=== PATIENT | female | born 1940 | race Caucasian/White ===

== ENCOUNTER 2018-04-27 14:49 | Inpatient (IN) | payer OTHER ==
[~2018-04-27 14:49] MED LIST: ACETAMINOPHEN-1 EAC1 PO; AMLODIPINE BESYL5 M1 PO; AMOXICILLIN500 M1 PO; ARICEPT 5 MG TAB5 MG PO; ASPIR 8181 MG PO; ATIVAN0.5 MG PO; AZITHROMYCIN 2250 MG PO; CARDIZEM CD120 MG PO; CEFUROXIME250 MG PO; CELEXA20 MG PO; COZAAR 50 MG TA50 M2 PO; CYMBALTA60 MG PO; DUONEB 2.5-0.5 M3 ML INH; EXELON1 EACH TRANSDERM; FIORICET 50-301 EACH PO; FLEXERIL PO; GERD MED; HYDRALAZINE 10M10 MG PO; HYDRALAZINE 2525 MG PO; KEPPRA 500 MG500 M1 PO; LASIX 40 MG TAB40 M2 PO; LIORESAL 10 MG10 MG PO; LIPITOR 10 MG10 M1 PO; LISINOPRIL10 MG PO; LOPERAMIDE 2 MG2 M1 PO; LOPRESSOR 12.12.5 MG PO; LOPRESSOR25 PO; METOLAZONE 2.52.5 MG PO; MOBIC15 MG PO; MUCINEX TA600 MG/TA2 PO; NAMENDA 5 MG TAB5 M1 PO; NORCO 5-325 TA1 EACH PO; OLANZAPINE ODT5 MG PO; ONDANSETRON HCL4 M2 PO; PEPCID20 MG PO; POTASSIUM20 PO; PREDNISONE 20 M20 M1 PO; PRINIVIL10 MG PO; PROTONIX40 M1 PO; RIVASTIGMINE1.5 MG PO; TESSALON PERLE100 MG PO; TRAMADOL 50 MG50 MG PO; TRAZODONE HCL50 MG PO; TYLENOL EXTRA500 MG PO; VENTOLIN HFA 1818 GM INH; ZANAFLEX4 MG PO; ZANTAC 150MG T150 MG PO; ZOLOFT 50 MG TA50 M1 PO
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
--- NOTE | 2018-04-28 20:01 | NUR ---
PT SCREAMING, HAVING VISUAL HALLUCINATION CLAIMING SHE IS IN THE [facility], ASSISTED TO THE DINING AREA AND STAYED THERE FOR BARELY 5 MINUTES THEN BECAME RESTLESS YELLING "TAKE ME BACK TO MY ROOM, A DIFFERENT ROOM, MY ROOM IS IN THE [facility]", EN ROUTE TO THE ROOM SHE DECIDED TO SIT ON THE FLOOR AND LIE DOWN BANGING ON THE DOOR, CALLED TO DR BARRERA, ORDER FOR VIOLETA, 10 M IM, PT IN BED AT THIS TIME.
[2018-04-28 20:28] VITALS: BP 134/69
[2018-04-28 22:21] LABS: URINE BILIRUBIN NEGATIVE (Negative); URINE BLOOD NEGATIVE (Negative); URINE CLARITY CLEAR; URINE COLOR YELLOW; URINE GLUCOSE-RANDOM* NEGATIVE (Negative); URINE KETONES TRACE (Negative); URINE LEUKOCYTES-REFLEX NEGATIVE (Negative); URINE NITRITE-REFLEX NEGATIVE (Negative); URINE PROTEIN (DIPSTICK) NEGATIVE (Negative); URINE SPECIFIC GRAVITY 1.015 (1.005-1.035); URINE UROBILINOGEN 0.2 E.U./dl (0.2-1.0)
--- NOTE | 2018-04-28 22:54 | NUR ---
CALMED DOWN AND RESTED AFTER THE JASMINE WAS GIVEN, ABLE TO COLLECT URINE SPECIMEN, SENT TO LAB, TOOK MEDS WITH NO DIFFICULTY, BLOOD SUGAR WAS CHECKED DUE TO SKIN WAS CLAMMY, 111, TOLERATING ORAL HYDRATION, UP WITH ASSIST WITH GAIT BELT TO THE BATHROOM, +2 EDEMA TO LEFT LEG, +1 TO RIGHT LEG, ALERT/ORIENTED TO NAME, UNABLE TO TELL WHERE SHE IS, MONITORED.
--- NOTE | 2018-04-29 04:40 | NUR ---
EPISODE AGAIN OF VERBAL AGGRESSION AND NAME CALLING NOTED FROM THE PATIENT THIS MORNING, PT CLAIMED STAFF ARE ROUGH. THIS NURSE TOOK OVER CARE AND SHE IS COOPERATIVE. ABLE TO TALK TO GO BACK TO SLEEP AFTER OFFERING DRINK OF WATER, SHE IS CONTINENT OF B/B, REQUESTED BRIEF THIS MORNING, GIVEN ONE AT THIS TIME. NO BM NOTED, STILL NEEDING SPECIMEN FOR C-DIFF, LIGHTS ON PER REQUEST, MONITORED.
[2018-04-29 07:28] VITALS: BP 151/74
[2018-04-29 09:47] LABS: ABSOLUTE NEUTROPHILS 3.8 thou/uL (1.4-8.2); BASOPHILS 1.7 % (0.0-2.0); EOSINOPHILS 1.3 % (0.0-3.0); HEMATOCRIT 31.7 % (37.0-47.0); HEMOGLOBIN 10.9 gm/dL (12.0-15.0); LYMPHOCYTES 18.2 % (24.0-44.0); MCH 28.7 pg (26.0-34.0); MCHC 34.5 g/dL (28.0-37.0); MCV 83.2 fL (80.0-100.0); MONOCYTES 6.4 % (1.0-8.0); PLATELET COUNT 189 thou/uL (150-400); POLYS 72.4 % (36.0-66.0); RBC 3.81 mil/uL (4.20-5.00); RDW 15.4 % (10.5-14.5); WBC 5.2 thou/uL (4.0-11.0)
[2018-04-29 10:00] LABS: CALCIUM 8.7 mg/dL (8.5-10.1); CREATININE 0.9 mg/dL (0.6-1.0); MAGNESIUM 1.6 mg/dL (1.8-2.4); POTASSIUM 3.8 mmol/L (3.5-5.1); TOTAL BILIRUBIN 0.6 mg/dL (<0.1-1.0); TOTAL PROTEIN 5.9 g/dL (6.4-8.2)
--- NOTE | 2018-04-29 12:17 | NUR ---
PATIENT HAS BEEN UNWILLING TO GET UP AND HAVE BREAKFAST OR LUNCH - NUMEROUS ATTEMPTS HAVE BEEN MADE TO ENCOURAGE PATIENT TO TAKE MEDICATIONS WELL. SHE IS RESPONSIVE TELLING STAFF TO GO AWAY SEVERAL TIMES THIS MORNING BUT NOT WILLING TO RESPOND TO STAFF.
--- NOTE | 2018-04-29 15:46 | NUR ---
PT. HAS BEEN VERY QUIET TODAY. SULLEN, SITTING QUIETLY. UPSET STILL IF HIS NEEDS ARE NOT GRATIFIED IMMEDIATELY. PT. CONTINUES TO NOT BE ABLE TO ATTEND GROUPS AND IS OUT ONLY FOR MEALS. HE HAS A DIAGNOSIS OF DEMITIA EVIDENCED BY UNABLE TO ANSWER QUESTIONS, DISCONNECTED SENTENSES WITH SIMPLE RESPONSES LIKE, COME ON NOW. HE USES A WALKER TO AMBULATE, WALKING ON HIS TOES AND WITH KNEES BENT WITH FEET TURNED SLIGHTLY INWARD HE AMBULATES. HE HAS POOR IMPULSE CONTROL EVIDENCED BY INABLILITY TO DELAY GRATIFICATION. HIS SPEECH CONTINUES TO BE GARBLES AND DIFFICULT TO UNDERSTAND.
--- NOTE | 2018-04-29 17:44 | NUR ---
SW had a family meeting with the pt daughter Marylou Shipleyoner, Bernardo Lugo, and Lanny Amador concerning hospice. Pt was admitted to hospice through [facility]. Pt will be transported to [facility] by [facility] ambulance. [facility] will follow-up pt upon discharge.
[2018-04-29 19:53] VITALS: BP 146/72
[2018-04-30 04:39] VITALS: BP 146/72
--- NOTE | 2018-04-30 05:42 | NUR ---
PATIENTS CARES WERE ASSUMED AT SHIFT CHANGE. pATIENT WAS ASSESSED AND MEDS WERE PASSED ORDERED OR NEEDED. THIS PATIENT WAS UP OUT OF BED X2 FOR THE BSC. PATIENT HAD APPROPRIATE ROUNDING BY ALL STAFF. SHE APPERED TO BE SLEEPING EACH TIME. THE BED ALARM IS ON. THE BED IS IN A LOW AND LOCKED POSITION.
[2018-04-30 08:00] VITALS: BP 182/90
[2018-04-30 08:02] VITALS: BP 182/90
--- NOTE | 2018-04-30 08:47 | H ---
[facility] [place] [address] HISTORY AND PHYSICAL Name: JUWAN SHEPHERD Room #: 519B-B ADM IN M.R.#: [id number] Admission: 04/28/18 Attend Phys: Rom Cr DO Discharge: Date of : 38 Report #: [id number] THIS REPORT FOR: //name// CC: Rom Motley DATE OF SERVICE: 04/29/2018 Of note, the patient had been at [facility] in [place], [place] from 04/24/2018 to 04/28/2018, there was a delay in her being transferred due to the weather. 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 HISTORY OF PRESENT ILLNESS: This is a 78-year-old obese female with a history of dementia. She presented from [facility] to the [facility] Emergency Room on 04/24/2018. She was brought by EMS with complaints of altered mental status. residential reported that the patient was combative and refusing treatment and wanted a psychiatric evaluation. She was refusing any type of medical treatment. She did not answer questions during the initial ER exam and was repeating "help they are going to kill me." The duration of this was in a period of hours prior to Emergency Room physician. From collateral provided by Dr. Harris, the patient continued to be mute for the first couple of days, would refuse things such as a urine sample, it was eventually obtained, which was negative for infection. Most other modalities checked were also negative. REVIEW OF SYSTEMS: On the patient when she got to the psychiatric unit was difficult to be done due to limited attention, but she denied physical complaints such as nausea, vomiting, fever or diarrhea. Otherwise, a 10-point review of systems is not possible due to her cooperation. PAST MEDICAL HISTORY: Includes obesity, hypertension, gastroesophageal reflux disease, cholecystitis status post cholecystectomy, polio as a child. PAST SURGICAL HISTORY: Appendectomy, hysterectomy, cholecystectomy, tonsillectomy. PSYCHIATRIC HISTORY: She is noted to have early onset dementia, details of which I do not have and I am also unclear if it was truly under the age of 69, which would be the threshold considered in the field. HOME MEDICATIONS: Noted to be atorvastatin 10 mg at bedtime and ranitidine 150 mg b.i.d. Additionally, reported medications in [facility] are donepezil [address] [address] HISTORY AND PHYSICAL Name: JUWAN SHEPHERD Room #: 519B-B ADM IN ..#: [id number] Admission: 04/28/18 Attend Phys: Rom Cr DO Discharge: Date of : 38 Report #: [id number] daily, lisinopril 10 mg daily, memantine 5 mg daily, baclofen 10 mg t.i.d., olanzapine unspecified dose, Keppra 500 mg b.i.d., Furosemide 40 mg daily, potassium chloride 20 mEq daily, citalopram 20 mg daily, loperamide 2 mg as directed, hydralazine 25 mg 4 times a day, diltiazem hydrochloride 120 mg daily, metoprolol tartrate 25 mg daily and metolazone 2.5 mg daily. ALLERGIES: PENICILLIN. FAMILY HISTORY: Not obtained in the ER. LABORATORY DATA: Initial laboratories on 04/24/2018 showed a BUN of 29, creatinine 1.9, ALT 14. RBC 4.14, hemoglobin 11.8, hematocrit 36.4. She was admitted to [facility], was given a liter of normal saline, Ativan 1 mg x 2 and Geodon 10 mg IM x 2. I am unclear other than for sedation while she was given Ativan 1 mg x 2 in the Emergency Room; however, that is a potential contributor to her delirium. Other laboratories done after the 2nd, BMP on the 7th was within normal limits including a GFR of 60, glucose 93, sodium 143, potassium 3.8, chloride 103, bicarbonate 32, anion gap 8, calcium 8.7, magnesium slightly low at 1.6, AST 14, ALT 12, which were low; total protein of 5.9 and albumin at 3.0. Urinalysis done on the showed trace ketones, otherwise within normal limits. There was no recent neuro imaging; however, neuro imaging done on 08/11/2016 was concerning for a lesion in the frontal lobe 3.7 x 3.9 cm in size. At the time, there was concern it could be a metastatic cancer. Apparently, the patient was referred to the [facility] for Neurology, Neurosurgery workup, the results of that are not known. Obviously, at this point since it has been close to 2 years since this head CT, I would not expect it to be a malignant lesion because the patient still living; however, it does remain an unresolved issue. MENTAL STATUS EXAMINATION: Well-developed, well-nourished, obese female in hospital gown in bed. Attention graded limited, concentration graded limited. Speech normal rate, but erratic. Thought process linear, but very limited. Thought content, general poverty. Psychomotor agitation some, no psychomotor retardation. Denied auditory, visual, or tactile hallucination. Denied suicidal intent or plan. Denied hopelessness and helplessness. Denied homicidal intent or plan. The patient was not oriented to time, situation, or place. CURRENT VITAL SIGNS: Temperature 36.8, pulse rate 65, BP 120/63 this morning, repeat 151/74, pulse ox 95% on room air. MICROBIOLOGY DATA: There was no blood culture done her recent medical admission. ASSESSMENT: A 78-year-old obese female, a [facility] resident, concern for delirium on top of major neurocognitive disorder. [facility] [address] [place] [address] HISTORY AND PHYSICAL Name: JUWAN SHEPHERD Room #: 519B-B [facility] IN [facility].#: [id number] Admission: 04/28/18 Attend Phys: Rom Cr, Discharge: Date of : 38 Report #: [id number] DIAGNOSES: Major neurocognitive disorder with behavioral disturbance, psychosis, unspecified. PLAN: Evaluate, stabilize, obtain collateral. Currently, I have limited her medications to Protonix 20 mg a day, potassium chloride 20 mEq daily, MiraLax 17 grams b.i.d., metolazone 2.5 mg daily, lisinopril 5 mg p.o. daily, furosemide 40 mg p.o. daily, docusate 100 mg b.i.d. p.o., diltiazem 120 mg daily, hydralazine 10 mg 4 times a day as needed for BPs over 160/100, Keppra 500 mg twice a day. She got a one-time Geodon injection 10 mg last night due to agitation, lying on the floor. Otherwise, normal PRNs. I will reach out to her DPOA today to discuss the case, try to get records from [facility]. My hope is that there will be some resolution with general good care to her delirium. I am also considering EEG. I discussed this with the neurologists; however, other than showing slow waves with her history of likely structural disturbance in the brain it probably will not be too yielding and so we will defer that for today. STRENGTHS: She is in hospitalized care. WEAKNESSES: Advancing age, dementia. <ELECTRONICALLY SIGNED> By: Rom Cr DO 04/30/18 0847 [id number] Rom Cr DO /nt
--- NOTE | 2018-04-30 09:10 | NUR ---
TALKING WITH CLIENT WITH DR. ROCHA. CLIENT REFUSING TO DRINK WATER OR EAT, STATED SHE WASN'T THIRSTY. CLIENT STATED SHE IS MAD AT DAUGHTER FOR DOING THIS TO HER, MEANING BRINGING HER HERE. SHE STATED SHE WANTS HER HOME BACK AND IT IS SOLD NOW, SHE STATED THAT HER DAUGHTER WANTS HER TO . SHE STATED HER HEART IS HURTING, AND NOT PHYSICALLY.
[2018-04-30] MEDS ORDERED: MSL20MG/ML SUBLING ×2 (11:11→11:12)
[2018-04-30] MEDS ORDERED: LORAZEPAM I2 MG/1 M2 SUBLING (11:12)
[2018-04-30] MEDS ORDERED: Atropine 1% Eye Drop SUBLING (11:13)
--- NOTE | 2018-04-30 11:30 | NUR ---
AFTER USING COMMODE. CLIENT REFUSED BLOOD SUGAR CHECK AND DIDN'T WANT FACE WASHED. SHE IS SITTING UP IN CHAIR AT THIS TIME.
--- NOTE | 2018-04-30 11:32 | NUR ---
CLIENT UP TO BSC X2 ASSIST. ABLE TO BEAR WEIGHT AND GET TO BSC. TRYING GET BLOOD SUGAR REFUSED BY YELLING NO. DIDN'T WANT FACE WASHED REFUSING. VOIDING ON BSC AT THIS TIME.
--- NOTE | 2018-04-30 11:48 | NUR ---
HAVING SOME DRY HEAVES WHILE SITTING UP, CLIENT FAMILY AT BEDSIDE.
--- NOTE | 2018-04-30 11:59 | NUR ---
CLIENT LEFT VIA EMS TO [facility]. CLIENT ABLE TO STAND, TAKE STEPS AND PIVOT OVER TO CART.
--- NOTE | 2018-04-30 13:19 | NUR ---
GAVE REPORT TO ONI VALERIO AT [facility]. CLIENT JUST ARRIVED.
--- NOTE | 2018-04-30 14:37 | NUR ---
Patient Name: JUWAN SHEPHERD Admission Date: 04/28/18 DISCHARGE PLAN: Pt will be discharge unto a nursing facility with hospice care through [facility]. Care Assessment: Dr. Cr assessed the pt to see if she was appropriate for hospice in due to the pt failure to thrive. He referred the pt for hospice due to her diagnosis of Major Neurocognitive Disorder Level II Assessment: None Transportation: Pt was transported [facility] Ambulance services. Special Instructions/Notes: DISCHARGE TO FACILITY: Memory Care Unit Facility: [facility] Fax: Address: [address] [place] [address] Contact Name: Jayna PCP: RD Psychiatrist: CHUCKY
--- NOTE | 2018-05-02 16:22 | D ---
[facility] [place] [address] DISCHARGE SUMMARY Name: JUWAN SHEPHERD Room #: 519B-B [facility] IN M.R.#: [id number] Admission: 04/28/18 Attend Phys: Rom Cr DO Discharge: 04/30/18 Date of : 38 Report #: [id number] THIS REPORT FOR: //name// CC: Rom Duckworth Tiesha DATE OF SERVICE: 04/30/2018 ATTENDING PHYSICIAN: Rom Cr DO. MONEY EXAMINER: Monica Harris MD. 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 HOSPITAL COURSE: The patient was admitted to Geriatric Psychiatry Unit. Initially, she was ambulatory and responsive. Her first night of admission, she had an episode of association, agitation, where she was found lying on the floor, refusing to get up. She was given 10 mg of intramuscular Geodon and this assisted in resolving it. The next day, by that morning, she had been refusing meals and pills. We had a family meeting that afternoon with Amparo, several family members by telephone. It was listed that there was a 2-year history of progressive neurodegenerative features. The DPOA, which is a daughter, had already been enacted. She did not want to force medications or feedings. We elected to go with the hospice comfort care route. Her nursing facility was contacted. She was enrolled in hospice. Plans were made for her to discharge the next day. On the , she was verbal in the morning, did not appear in any distress. DISCHARGE PLAN: Comfort care only. PROGNOSIS: Likely terminal with continued anorexia and without interventions. ACTIVITY LEVEL: As tolerated, but she obviously is a high fall risk. MEDICATIONS: At the time of discharge, morphine 5 mg sublingual, 10 mg sublingual and 20 mg sublingual for the varying pain ranges, Ativan 0.5 mg every 2 hours p.r.n. anxiety, atropine eyedrops 1-2 drops sublingual q.2 hours for secretions. I stopped her atorvastatin, ranitidine, donepezil, lisinopril, memantine, Keppra, furosemide, citalopram given her refusal of p.o. medications as well as rivastigmine. OBJECTIVE: VITAL SIGNS: This a.m. as follows, temperature 36.7, pulse 90, respirations 18, BP 182/90, O2 sat 93% on room air. MENTAL STATUS EXAM: This is a well-developed, disheveled, obese [address] [address] DISCHARGE SUMMARY Name: JUWAN SHEPHERD Room #: 519B-B [facility] IN M.R.#: [id number] Admission: 04/28/18 Attend Phys: Rom Cr, Discharge: 04/30/18 Date of : 38 Report #: [id number] female who appearing stated age. Attention limited, concentration limited. Speech slowed. Thought process linear and limited. Thought content focused on "having sad heart because her daughter had left her here." I feel the patient is delusional about this. Denied SI, HI. Some helplessness and hopelessness. Denied memory, not formally tested, noted to be impaired. Insight impaired. Judgment impaired. Fund of knowledge below average. LABORATORY DATA: Laboratory this admission, she was transferred from [facility], so they were brief. On Hematology: H and H 10.9 and 31.7, white count 5.2, platelet count 15.4. AST 14, ALT 12, total protein 5.9, albumin 3.0. Electrolytes on the 7th were sodium 143, potassium 3.9, chloride 103, bicarbonate 32, anion gap 8, BUN 13, creatinine 0.9, estimated GFR 60, glucose 93. C. difficile toxin was initially ordered for diarrhea and then cancelled because did not meet the qualifications. <ELECTRONICALLY SIGNED> By: Rom Cr DO 05/02/18 1622 [id number] Rom Cr DO /nt
== END 2018-04-30 12:00 | disposition home health service (06) | DRG 57 ==
LOC: SBH
PROVIDERS: Nurse Practitioner; ADMIT Psychiatry & Neurology Psychiatry
DX: G30.9 Alzheimer's disease, unspecified (principal); N17.9 Acute kidney failure, unspecified; F01.51 Vascular dementia, unspecified severity, with behavioral disturbance; F02.81 Dementia in other diseases classified elsewhere, unspecified severity, with behavioral disturbance; F06.1 Catatonic disorder due to known physiological condition; F32.9 Major depressive disorder, single episode, unspecified; E66.9 Obesity, unspecified; F29 Unspecified psychosis not due to a substance or known physiological condition; K21.9 Gastro-esophageal reflux disease without esophagitis; I10 Essential (primary) hypertension; Z90.49 Acquired absence of other specified parts of digestive tract; Z90.710 Acquired absence of both cervix and uterus; Z88.0 Allergy status to penicillin; Z79.899 Other long term (current) drug therapy
CPT/HCPCS: 10880